=== PATIENT | male | born 1970 | race Two or more races ===

== ENCOUNTER 2018-02-13 23:22 | Emergency (ER) | payer SELFPAY ==
[~2018-02-13] VITALS: Ht 165.1 cm; Wt 74.8 kg
[2018-02-13 23:25] VITALS: BP 133/68
--- NOTE | 2018-02-13 23:41 | NUR ---
PT AMBULATORY TO ER BED 13. 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 STATES WS SENT HERE FROM ANOTHER ER. 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 VSS/RESP EVEN UNLABORED/NAD NOTED/SKIN WARM AND DRY/DENIES N-V-D/AFEBRILE/AOX4. AWAITING MD HARPER.
[2018-02-13] MEDS ORDERED: TETRACAINE HCL/PF 0.5% UD 2 ML BOTTLE ONE (23:58)
--- NOTE | 2018-02-13 23:58 | NUR ---
AT BEDSIDE FOR EVAL.
== END 2018-02-14 00:22 | disposition home or self-care (01) ==
LOC: ER 23:24
DX: Z13.89 Encounter for screening for other disorder (principal); H57.11 Ocular pain, right eye
CPT/HCPCS: 99281; A4606; Z7610; Z7502